=== PATIENT | male | born 1965 | race Caucasian/White ===

== ENCOUNTER 2017-08-12 20:26 | Inpatient (IN) | payer OTHER ==
[2017-08-12] MEDS: SODIUM CHLOR 0.9% 1000 ML INJ 1,000 ML IV ×2 (20:34)
[2017-08-12] MEDS: ASPIRIN 81 MG CHEW TAB PO (20:34)
[2017-08-12] MEDS: HEPARIN SODIUM - IV 10,000 UNITS/10 ML VIAL IV PUSH (20:34)
[2017-08-12] MEDS ORDERED: NITROGLYCERIN-D5W 50 MG/250 ML 250 ML IV (20:45)
[2017-08-12] MEDS ORDERED: SODIUM CHLORIDE 0.9% FLUSH 10 ML FLUSH IVF (20:45)
[2017-08-12 21:00] LABS: I-STAT BLOOD UREA NITROGEN 18 MG/DL (5-21); I-STAT CHLORIDE 103 MMOL/L (102-111); I-STAT GLUCOSE 186 MG/DL (68-110); I-STAT HEMOGLOBIN (CALC.) 14.3 G/DL (13.0-17.0); I-STAT SODIUM 139 MMOL/L (137-144)
[2017-08-12 21:06] LABS: AUTOMATED NEUTROPHIL # 5.5 TH/MM3 (1.8-7.7); BASOPHIL % 0.4 % (0.0-2.0); EOSINOPHIL # 0.2 TH/MM3 (0-0.4); HEMATOCRIT 40.7 % (39.0-51.0); HEMO FLAGS DIFF FINAL; HEMOGLOBIN 14.2 GM/DL (13.0-17.0); LYMPH % 24.8 % (9.0-44.0); LYMPHOCYTE # 2.1 TH/MM3 (1.0-4.8); MEAN CELL VOLUME 86.6 FL (80.0-100.0); MEAN CORPUSCULAR HEMOGLOBIN 30.3 PG (27.0-34.0); MONO % 6.6 % (0.0-8.0); MONOCYTE # 0.5 TH/MM3 (0-0.9); NEUT % 66.2 % (16.0-70.0); PLATELET COUNT 304 TH/MM3 (150-450); RED CELL DISTRIBUTION WIDTH 13.4 % (11.6-17.2); WHITE BLOOD COUNT 8.3 TH/MM3 (4.0-11.0)
[2017-08-12] MEDS: NITROGLYCERIN 0.4 MG SL 25 TABS/BTL SL (21:08)
[2017-08-12] MEDS: NITROGLYCERIN/DEXTROSE 5% 250 ML for chest pain IV (21:09)
[2017-08-12] MEDS: PHENYLEPHRINE HCL 10 MG/ML VIAL (21:11)
[2017-08-12 21:12] LABS: CALCIUM 8.5 MG/DL (8.5-10.1)
[2017-08-12 21:20] LABS: MAGNESIUM 2.2 MG/DL (1.5-2.5)
[2017-08-12 21:21] LABS: CREATINE KINASE 160 U/L (39-308)
[2017-08-12 21:27] LABS: B-TYPE NATRIURETIC PEPTIDE 51 PG/ML (0-100)
[2017-08-12] MEDS: MIDAZOLAM HCL 2 MG/2 ML VIAL (21:30)
[2017-08-12 21:34] LABS: TROPONIN I 1.39 NG/ML (0.02-0.05)
[2017-08-12] MEDS: HEPARIN SODIUM - IV 10,000 UNITS/10 ML VIAL (21:41)
[2017-08-12 21:46] LABS: CKMB 2.1 NG/ML (0.5-3.6)
[2017-08-12] MEDS: TICAGRELOR 90 MG TAB PO (22:36)
[2017-08-12] MEDS: HEPARIN-NS/PF INJ 1,000 ML (22:41)
[2017-08-12] MEDS: MISC INFORMATION XX (23:00)
[2017-08-12] MEDS ORDERED: oxyCODONE/ACETAMINOPHEN 5 MG/325 MG TAB PO (23:00)
[2017-08-12] MEDS ORDERED: ACETAMINOPHEN 325 MG TAB PO (23:00)
[2017-08-12] MEDS ORDERED: PILL SPLITTER OTHER (23:15)
[2017-08-12] MEDS ORDERED: CHLORHEXIDINE GLUCONATE 2 % 1 PACK (2 CLOTHS)(extra cloths) TOPICAL (23:30)
[2017-08-12] MEDS: MORPHINE SULFATE 4 MG/ML INJ IV PUSH (23:53)
[2017-08-13] MEDS: MORPHINE SULFATE 4 MG/ML INJ IV PUSH ×3 (00:54→08:57)
[2017-08-13] MEDS: oxyCODONE/ACETAMINOPHEN 10 MG/325 MG TAB PO ×4 (00:54→20:39)
[2017-08-13 01:10] LABS: APTT (PATIENT) 47.2 SEC (24.3-30.1); INTERNATIONAL NORMALIZED RATIO 1.3 RATIO; PROTHROMBIN TIME - PATIENT 13.1 SEC (9.8-11.6)
[2017-08-13 01:39] LABS: MRSA PCR SURVEILLANCE MRSA NOT DETECTED (NOT DETECT)
[2017-08-13] MEDS: CHLORHEXIDINE GLUCONATE 2 % 1 PACK (2 CLOTHS)(taper/protocol) TOPICAL (04:00)
[2017-08-13 06:02] LABS: AUTOMATED NEUTROPHIL # 4.6 TH/MM3 (1.8-7.7); BASOPHIL % 0.4 % (0.0-2.0); EOSINOPHIL # 0.1 TH/MM3 (0-0.4); EOSINOPHIL % 1.3 % (0.0-4.0); HEMATOCRIT 39.8 % (39.0-51.0); HEMO FLAGS DIFF FINAL; HEMOGLOBIN 13.5 GM/DL (13.0-17.0); LYMPH % 26.8 % (9.0-44.0); MEAN CELL VOLUME 87.3 FL (80.0-100.0); MEAN CORPUSCULAR HEMOGLOBIN 29.6 PG (27.0-34.0); MEAN CORPUSCULAR HGB CONC 33.9 % (32.0-36.0); MEAN PLATELET VOLUME 7.9 FL (7.0-11.0); MONO % 8.5 % (0.0-8.0); MONOCYTE # 0.6 TH/MM3 (0-0.9); PLATELET COUNT 296 TH/MM3 (150-450); RED BLOOD COUNT 4.55 MIL/MM3 (4.50-5.90); RED CELL DISTRIBUTION WIDTH 13.8 % (11.6-17.2); WHITE BLOOD COUNT 7.4 TH/MM3 (4.0-11.0)
[2017-08-13 06:16] LABS: ANION GAP 7 MEQ/L (5-15); AST (GOT) 96 U/L (15-37); BICARBONATE 27.2 MEQ/L (21.0-32.0); BLOOD UREA NITROGEN 11 MG/DL (7-18); CALCIUM 8.1 MG/DL (8.5-10.1); CHLORIDE 105 MEQ/L (98-107); CREATININE 0.88 MG/DL (0.60-1.30); GLOMERULAR FILTRATION RATE 91 ML/MIN (>89); GLUCOSE,RANDOM 102 MG/DL (74-106); POTASSIUM 3.8 MEQ/L (3.5-5.1); SODIUM (NA) 139 MEQ/L (136-145)
[2017-08-13 06:18] LABS: CHOLESTEROL 206 MG/DL (120-200); TRIGLYCERIDES 188 MG/DL (42-150)
[2017-08-13 06:29] LABS: ALKALINE PHOSPHATASE 68 U/L (45-117); ALT (GPT) 77 U/L (12-78); CHOLESTEROL/ HDL RATIO 6.13 RATIO; DIRECT BILIRUBIN ADULT 0.1 MG/DL (0.0-0.2); HDL CHOLESTEROL 33.6 MG/DL (40.0-60.0); INDIRECT BILIRUBIN 0.2 MG/DL (0.0-0.8); LDL CHOLESTEROL 135 MG/DL (0-99); TOTAL BILIRUBIN ADULT 0.3 MG/DL (0.2-1.0); TOTAL PROTEIN 6.8 GM/DL (6.4-8.2)
[2017-08-13] MEDS: ASPIRIN 81 MG CHEW TAB PO (08:24)
[2017-08-13] MEDS: TICAGRELOR 90 MG TAB PO ×2 (08:24→20:33)
[2017-08-13] MEDS: METOPROLOL TARTRATE 25 MG TAB PO ×2 (08:24→20:34)
[2017-08-13] MEDS: LISINOPRIL 5 MG TAB PO (08:24)
[2017-08-13] MEDS ORDERED: IOHEXOL 350 MG/ML 100 ML BTL (for Cath Lab) OTHER (09:03)
[2017-08-13] MEDS ORDERED: IOHEXOL 350 MG/ML 50 ML BTL (for Cath Lab) OTHER (09:03)
[2017-08-13] MEDS: LORazepam 0.5 MG TAB PO (13:53)
[2017-08-13 15:10] LABS: HEMOGLOBIN A1C 5.7 % (4.3-6.0); HEMOGLOBIN A1a 0.9 %; HEMOGLOBIN A1b 1.9 %; HEMOGLOBIN Ao 85.3 %; HEMOGLOBIN P3 3.7 %
[2017-08-13] MEDS: ATORVASTATIN 80 MG TAB PO (20:33)
[2017-08-13] MEDS ORDERED: LORazepam 1 MG TAB PO (21:00)
[2017-08-14] MEDS: CHLORHEXIDINE GLUCONATE 2 % 1 PACK (2 CLOTHS)(taper/protocol) TOPICAL (04:00)
[2017-08-14] MEDS: METOPROLOL TARTRATE 25 MG TAB PO (09:37)
[2017-08-14] MEDS: ASPIRIN 81 MG CHEW TAB PO (09:37)
[2017-08-14] MEDS: LISINOPRIL 5 MG TAB PO (09:37)
[2017-08-14] MEDS: TICAGRELOR 90 MG TAB PO (09:37)
[2017-08-14] MEDS: oxyCODONE/ACETAMINOPHEN 10 MG/325 MG TAB PO (09:46)
== END 2017-08-14 15:03 | disposition home or self-care (01) | DRG 247 ==
LOC: NEPE 20:26 → HCIS 08-13 13:25 → NEDA 20:57 → HCIS 21:46 → HIME 22:55
PROC: 027035Z Dilation of Coronary Artery, One Artery with Two Drug-eluting Intraluminal Devices, Percutaneous Approach (ICD-10-PCS; principal; 2017-08-12)
PROC: 4A023N7 Measurement of Cardiac Sampling and Pressure, Left Heart, Percutaneous Approach (ICD-10-PCS; 2017-08-12)
PROC: B2111ZZ Fluoroscopy of Multiple Coronary Arteries using Low Osmolar Contrast (ICD-10-PCS; 2017-08-12)
DX: I21.19 ST elevation (STEMI) myocardial infarction involving other coronary artery of inferior wall (principal); I21.11 ST elevation (STEMI) myocardial infarction involving right coronary artery; I10 Essential (primary) hypertension; I48.91 Unspecified atrial fibrillation; R55 Syncope and collapse; F32.9 Major depressive disorder, single episode, unspecified; E78.5 Hyperlipidemia, unspecified; I25.119 Atherosclerotic heart disease of native coronary artery with unspecified angina pectoris; R32 Unspecified urinary incontinence; K21.9 Gastro-esophageal reflux disease without esophagitis; F17.210 Nicotine dependence, cigarettes, uncomplicated; Z79.82 Long term (current) use of aspirin; Z79.01 Long term (current) use of anticoagulants; F41.9 Anxiety disorder, unspecified
CPT/HCPCS: 71045; 80048; 80061; 80076; 82310; 82550; 82552; 83036; 83735; 83880; 84443; 84484; 85002; 85002-91; 85025; 85610; 85730; 87641; 92941; 93005; 93306; 93458; 96374; 99152; 99153; 99285-25